=== PATIENT | male | born 1945 | race Caucasian/White ===

== ENCOUNTER 2019-06-02 01:22 | Inpatient (IN) | payer MEDICARE, OTHER ==
[~2019-06-02] VITALS: Ht 180.3 cm; Wt 99.8 kg
[2019-06-02] VITALS (13 sets, daily range): BP systolic 119–214; BP diastolic 54–130
[~2019-06-02 01:22] MED LIST: ADULT LOW DOSE81 MG PO; ASPIRIN81 M2 PO; BACTRIM 400-801 EACH PO; BACTROBAN CREAM30 G1; CALCIUM 500 +1 EAC4; CLARITIN10 MG PO; CLONAZEPAM 1 MG1 M1 PO; CLONIDINE HCL0.3 M2 PO; COREG CR20 MG PO; COREG25 MG PO; EFFEXOR XR75 MG PO; EFFEXOR75 MG PO; FISH OIL 500 M1 EAC2 PO; FLOMAX0.4 MG PO; FOLIC ACID1 MG PO; HUMALOG100 UNIT/1; HUMULIN N100 UNIT/1 SQ; HUMULIN N100 UNIT/3 SUBQ; HYDRALAZINE 5050 M1 PO; HYDROCODONE-APA1 TA1 PO; HYDROXYZINE HCL25 M2 PO; IRON325 PO; KLOR-CON 1010 MEQ; KLOR-CON 1010 MEQ PO; LANTUS100 UNIT/M SUBQ; LASIX 40 MG TAB40 M2 PO; LASIX 40 MG TAB40 MG PO; LEVAQUIN 500 M500 M2 PO; LISINOPRIL-HCT1 EAC1; LISINOPRIL20 MG; MULTIVITAMINS1 EAC7 PO; MYFORTIC180 MG PO; NEURONTIN 300300 M1 PO; NORCO 7.5-3251 EACH PO; NORVASC 5 MG TAB5 MG PO; NOVOLOG100 UNIT/1 SUBQ; OCUVITE TABLET1 EAC1 PO; OMEPRAZOLE 20 M20 M1 PO; OPTIVE EYE DROP30 ML; PEPCID20 MG PO; POTASSIUM20 PO; PREDNISONE 5 MG5 M1 PO; PRINIVIL20 MG PO; PROGRAF1 MG; PROGRAF1 MG PO; PROPRANOLOL 1010 MG PO; PROTONIX40 M1 PO; RENVELA800 MG PO; SENNA PO; SIMVASTATIN40 MG PO; SLOW-MAG64 M1 PO; SLOW-MAG64 MG PO; TUMS X-STR300 MG PO; TYLENOL325 MG PO; VALCYTE450 MG PO; VISION VITAMIN1 EAC1; VITAMIN D1000 UNI1 PO; VITAMIN D400 UNIT PO; VITAMIN E1000 UNI3; VITAMIN E400 UNIT PO; XANAX 0.25 MG0.25 MG PO; ZOCOR20 MG PO; ZOFRAN ODT4 MG PO; [UNRECOGNIZED DRUG - CODE] SUBQ; [UNRECOGNIZED DRUG - OTHER] PO
[2019-06-02 01:56] LABS: ABSOLUTE EOSINOPHILS 0.1 thou/uL (0.0-0.7); ABSOLUTE LYMPHOCYTES 0.8 thou/uL (0.8-5.3); ABSOLUTE MONOCYTES 0.6 thou/uL (0.0-1.2); ABSOLUTE NEUTROPHILS 6.2 thou/uL (1.6-8.1); BASOPHILS 0.3 %; EOSINOPHILS 1.6 %; HEMATOCRIT 39.1 % (42.0-52.0); HEMOGLOBIN 13.2 gm/dL (14.0-18.0); LYMPHOCYTES 10.9 %; MCH 29.1 pg (26.0-34.0); MCHC 33.7 g/dL (28.0-37.0); MCV 86.3 fL (80.0-100.0); MONOCYTES 7.7 %; MPV 7.7 fl. (7.2-11.1); NUCLEATED RBCS 0 /100WBC; PLATELET COUNT* 184 thou/uL (150-400); POLYS 79.5 %; RBC 4.53 mil/uL (4.50-6.00); RDW-CV 16.5 % (10.5-14.5); WBC 7.7 thou/uL (4.0-11.0)
[2019-06-02 02:05] LABS: CALCIUM 7.7 mg/dL (8.5-10.1); CREATININE 1.2 mg/dL (0.6-1.3)
[2019-06-02 02:06] LABS: INR 1.1; POTASSIUM 2.7 mmol/L (3.5-5.1)
[2019-06-02 02:17] LABS: ALBUMIN 3.3 g/dL (3.4-5.0); TOTAL BILIRUBIN 0.3 mg/dL (<0.1-1.0)
[2019-06-02 03:52] LABS: URINE BILIRUBIN NEGATIVE (Negative); URINE BLOOD NEGATIVE (Negative); URINE CLARITY CLEAR; URINE COLOR YELLOW; URINE GLUCOSE-RANDOM NEGATIVE (Negative); URINE KETONES NEGATIVE (Negative); URINE LEUKOCYTES-REFLEX NEGATIVE (Negative); URINE NITRITE-REFLEX NEGATIVE (Negative); URINE PROTEIN NEGATIVE (Negative); URINE UROBILINOGEN 0.2 E.U./dl (0.2-1.0)
[2019-06-02] MEDS ORDERED: DRIZALMA SPRINK20 MG PO (05:40)
[2019-06-02] MEDS ORDERED: BUMEX2 MG PO (05:40)
[2019-06-02] MEDS ORDERED: DULCOLAX STOOL100 M1 PO (05:41)
[2019-06-02] MEDS ORDERED: LIPITOR40 MG PO (05:41)
[2019-06-02] MEDS ORDERED: LIDODERM1 EACH TOP (05:42)
[2019-06-02] MEDS ORDERED: HYDRALAZINE 2525 M1 PO (05:42)
[2019-06-02] MEDS ORDERED: VYZULTA5 ML OPHTHALMIC (05:42)
[2019-06-02] MEDS ORDERED: LOSARTAN POTASS50 MG PO (05:42)
[2019-06-02] MEDS ORDERED: PROGRAF1 MG PO (11:16)
--- NOTE | 2019-06-02 13:01 | EKG ---
[place] [address] ELECTROCARDIOGRAM REPORT Name: DAKOTA REYNOLDS Room: [address] ADM IN M.R.#: [id number] Admission: 06/02/19 Attend Phys: Greg Washington Discharge: Date of : 49 Report #: [id number] THIS REPORT FOR: //name// [facility] ED Test Date: 2019-06-02 Test Time: 01:44:33 Pat Name: DAKOTA REYNOLDS Department: Room: [facility] Gender: M Risk Assessment Consultant: CT : 1945 Requested By: Joy May Order Number: [id number] MD: Darrion Navarro Measurements Intervals [place] Rate: 64 P: 7 OR: 346 QRS: -16 QRSD: 98 T: 29 QT: 430 QTc: 444 Interpretive Statements Sinus rhythm Prolonged OR interval Inferior infarct, old Compared to ECG 10/07/2016 18:38:21 Myocardial infarct finding now present Ventricular premature complex(es) no longer present Electronically Signed On 06-02-2019 13:00:41 EVENT STAFF MEMBER by Darrion Navarro [email or web address] <ELECTRONICALLY SIGNED> By: Darrion Navarro MD, FACC 06/02/19 1300 0144 0144 Darrion Navarro MD, [facility] /EPI
[2019-06-02 14:05] LABS: CALCIUM 8.2 mg/dL (8.5-10.1)
[2019-06-02 14:06] LABS: POTASSIUM 2.6 mmol/L (3.5-5.1)
[2019-06-02 23:19] LABS: CALCIUM 8.2 mg/dL (8.5-10.1); CREATININE 1.1 mg/dL (0.6-1.3)
[2019-06-02 23:27] LABS: POTASSIUM 3.9 mmol/L (3.5-5.1)
[2019-06-03 04:31] LABS: CALCIUM 7.9 mg/dL (8.5-10.1); CREATININE 1.1 mg/dL (0.6-1.3); POTASSIUM 4.2 mmol/L (3.5-5.1)
[2019-06-03 07:01] VITALS: BP 151/56
[2019-06-03 08:01] VITALS: BP 139/45
[2019-06-03 13:05] VITALS: BP 159/59
[2019-06-03 15:24] VITALS: BP 142/51
[2019-06-03 20:00] VITALS: BP 153/56
[2019-06-04 04:49] LABS: CREATININE 1.1 mg/dL (0.6-1.3); MAGNESIUM 1.8 mg/dL (1.8-2.4); POTASSIUM 4.1 mmol/L (3.5-5.1)
[2019-06-04 05:47] VITALS: BP 172/72
[2019-06-04] MEDS ORDERED: FLOMAX0.4 MG PO (07:45)
[2019-06-04 09:30] VITALS: BP 110/62
[2019-06-04 11:08] VITALS: BP 110/62
--- NOTE | 2019-06-04 18:41 | CON ---
[address] [address] CONSULTATION Name: DAKOTA REYNOLDS Room: [address] IN M.R.#: [id number] Admission: 06/02/19 Attend Phys: Greg Washington Discharge: 06/04/19 Date of : 49 Report #: [id number] THIS REPORT FOR: //name// CC: JULIO physician/PCP Analy Gr DATE OF SERVICE: 06/03/2019 NEPHROLOGY CONSULTATION CONSULTING PHYSICIAN: Analy Gr MD REASON FOR NEPHROLOGY CONSULTATION: History of renal transplant for followup. REASON FOR ADMISSION: The patient became unresponsive and he was hypoglycemic. HISTORY OF PRESENT ILLNESS: This is a 74-year-old male with past medical history of donor kidney transplant in 2014, reports no rejection episodes, follows with Dr. Nguyen at , creatinine at baseline 1-1.1, was brought in yesterday because he had an episode of unresponsiveness. His blood sugar was found to be 74 at that time. Apparently, he had taken his insulin, but has not eaten much. He was given some D10 bolus, blood glucose did improve and his mental status did improve also once he came to the hospital. He takes Prograf, Myfortic and prednisone. The dosages were verified. He was also found to have urinary retention. Initially, CT abdomen showed evidence of mild hydroureter and transplanted kidney and distended urinary bladder. Showed greater than 400 mL. Urology was consulted. They recommended placement of Madison catheter, which was done and they started him on Flomax and they recommended voiding trial just before discharge and they recommended him to follow up with Urology as outpatient. The patient does not have any complaints right now. He is hungry. He also takes bumetanide at home. His creatinine was 1.2 when he came in, came down to 1.1. He was given IV fluids overnight. ALLERGIES: IRON AND WASP STINGS. REVIEW OF SYSTEMS: Unless mentioned in history of present illness, otherwise 10-point review of systems done and negative. PAST MEDICAL AND SURGICAL HISTORY: Includes a history of diabetes type 2, history of hypertension, history of donor kidney transplant 2014 and obstructive sleep apnea. Surgical history, gallbladder removal and the patient has a left radiocephalic fistula. The patient was on dialysis for six and a half years before he got his transplant. FAMILY HISTORY: [place] [address] CONSULTATION Name: DAKOTA REYNOLDS Room: [address]#: [id number] Admission: 06/02/19 Attend Phys: Greg Washington Discharge: 06/04/19 Date of : 49 Report #: [id number] SOCIAL HISTORY: Lives at home with his . Does not smoke, drink alcohol or use illicit drugs. MEDICATIONS: Include acetaminophen, hydroxyzine, duloxetine, bumetanide 2 mg daily, docusate, atorvastatin, hydralazine, latanoprost, lidocaine, Lozol 50 mg a day, prednisone 5 mg a day, carvedilol 25 mg b.i.d., propranolol 40 mg b.i.d., pantoprazole, loratadine, ____, tacrolimus 4 mg at night and 2 mg in the morning, Myfortic 3 tablets 180 mg each b.i.d., cholecalciferol, aspirin, Lantus, potassium, simvastatin, vitamin C and E and potassium chloride 40 mEq daily, and amlodipine. PHYSICAL EXAMINATION: VITAL SIGNS: Blood pressure is 142/74, pulse rate is 78, his temperature is 36.8, respiratory rate is 16, and pulse ox is on room air 100%. GENERAL: He is awake, alert, oriented x 3. HEAD AND EYES: Atraumatic, normocephalic. EARS, NOSE, AND THROAT: Normal ears and nose. Mucous membranes are moist. NECK: No JVD. CHEST: Bilaterally clear to auscultation. No crackles or wheezing. CARDIOVASCULAR: S1, S2 normal. No murmurs. ABDOMEN: Soft, nondistended. Transplant site right lower quadrant is intact. No tenderness. EXTREMITIES: Lower extremities, there is no lower extremity edema. NEUROLOGICAL FUNCTION: Gross neurological function is intact. PSYCHIATRIC: Mood and affect seem to be normal. LABORATORY DATA: Hemoglobin is 13.2, WBC 7.7, platelet count is 184,000. Creatinine 1.1, sodium is 142, potassium is 4.2. It was 2.7 when he came in and magnesium was 1.3 when he came, now 1.8 and other labs are reviewed. IMAGING: Arterial study foot x-ray, head CT, abdominopelvic CT and chest x-ray were reviewed. ASSESSMENT: 1. History of donor kidney transplant in 2014, creatinine seems to be at baseline. He is on chronic immunosuppressive medications. 2. Hypomagnesemia, which is likely because of tacrolimus use. 3. Hypokalemia, which is also with diuretic use and tacrolimus causing hypomagnesemia, which is in turn cause hypokalemia. 4. Decreased responsiveness, which is because of hypoglycemia. It is right now resolved. 5. Diabetes type 2, primary team is managing. 6. Urinary bladder distention with mild hydroureter with transplant kidney and Flomax started and he has a Madison and Urology evaluated him. 7. Obstructive sleep apnea. 8. Hypertension. Blood pressure is controlled. [facility] [address] [place] [address] CONSULTATION Name: DAKOTA REYNOLDS Room: [address]#: [id number] Admission: 06/02/19 Attend Phys: Greg Washington Discharge: 06/04/19 Date of : 49 Report #: [id number] PLAN: 1. He is eating, drinking well. Please stop his IV fluids. 2. We will check a Prograf level. 3. Continue his chronic immunosuppression. 4. He will need magnesium supplementation on a chronic basis. I am going to go ahead and order and that will follow his electrolytes. 5. His foot x-ray showed left foot having bone destruction of second and third toes. We will defer that to primary. 6. Continue Flomax and follow with Urology for urinary retention. Thank you for this consultation. We will continue to follow with you. <ELECTRONICALLY SIGNED> By: Kyara Del Rio MD 06/04/19 1841 0818 [id number] Del Rio MD /nt
== END 2019-06-04 13:37 | disposition home or self-care (01) | DRG 638 ==
LOC: M.ERS 01:22 → M.TBA-ER 03:44 → M.ICU 03:44 → M.ORTHSURG 06-03 16:26
PROVIDERS: Emergency Medicine; Internal Medicine; ADMIT Internal Medicine
DX: E11.649 Type 2 diabetes mellitus with hypoglycemia without coma (principal); Z94.0 Kidney transplant status; N13.30 Unspecified hydronephrosis; J90 Pleural effusion, not elsewhere classified; I12.0 Hypertensive chronic kidney disease with stage 5 chronic kidney disease or end stage renal disease; G92 Toxic encephalopathy; G47.33 Obstructive sleep apnea (adult) (pediatric); E83.42 Hypomagnesemia; E87.6 Hypokalemia; E11.40 Type 2 diabetes mellitus with diabetic neuropathy, unspecified; N18.6 End stage renal disease; K59.00 Constipation, unspecified; E11.22 Type 2 diabetes mellitus with diabetic chronic kidney disease; G31.84 Mild cognitive impairment of uncertain or unknown etiology; R33.9 Retention of urine, unspecified; N32.89 Other specified disorders of bladder; N40.1 Benign prostatic hyperplasia with lower urinary tract symptoms; E11.51 Type 2 diabetes mellitus with diabetic peripheral angiopathy without gangrene; Z79.84 Long term (current) use of oral hypoglycemic drugs; Z90.49 Acquired absence of other specified parts of digestive tract; Z79.82 Long term (current) use of aspirin; Z79.899 Other long term (current) drug therapy; Z91.038 Other insect allergy status; Z91.048 Other nonmedicinal substance allergy status; Y92.89 Other specified places as the place of occurrence of the external cause; T50.905A Adverse effect of unspecified drugs, medicaments and biological substances, initial encounter; Z82.49 Family history of ischemic heart disease and other diseases of the circulatory system

== ENCOUNTER 2019-06-13 13:37 | Inpatient (IN) | payer MEDICARE, OTHER ==
[~2019-06-13] VITALS: Ht 172.7 cm; Wt 95.3 kg
--- NOTE | ~2019-06-13 | EKG ---
[place] [address] ELECTROCARDIOGRAM REPORT Name: DAKOTA REYNOLDS Room: [address] ADM IN M.R.#: [id number] Admission: 06/13/19 Attend Phys: Tony seals Sa Discharge: Date of : 49 Date of Service: 06/15/192038 Report #: [id number] THIS REPORT FOR: cc: Physician not on staff Physician not on staff Jess Mercado MD ~ THIS REPORT FOR: //name// [facility] Test Date: 2019-06-15 Test Time: 20:39:06 Pat Name: DAKOTA REYNOLDS Department: Room: [address] Gender: M Numerical Tool Programmer: TNIG : 1945 Requested By: Tony Bautista Order Number: [id number] Reading MD: Measurements Intervals [place] Rate: 73 P: 55 GA: 233 QRS: 14 QRSD: 91 T: 8 QT: 383 QTc: 422 Interpretive Statements Sinus rhythm Prolonged GA interval Low voltage, precordial leads Compared to ECG 06/13/2019 14:05:52 First degree AV block now present Low QRS voltage now present Myocardial infarct finding no longer present [email or web address] By: 38 38 Epiphany Epiphany, /ELIUD
[~2019-06-13 13:37] MED LIST changes: +BUMEX2 MG PO; +DRIZALMA SPRINK20 MG PO; +DULCOLAX STOOL100 M1 PO; +HYDRALAZINE 2525 M1 PO; +LIDODERM1 EACH TOP; +LIPITOR40 MG PO; +LOSARTAN POTASS50 MG PO; +VYZULTA5 ML OPHTHALMIC
[2019-06-13 13:44] VITALS: BP 160/60
--- NOTE | 2019-06-13 14:01 | NUR ---
SEVERAL TEMPERATURES HAVE BEEN TAKEN OF THE PATIENT SINCE TRIAGE. ALL RANGING FROM 107.1 DOWN TO 101.3, BOTH TEMPORAL AND ORAL.
[2019-06-13 14:07] LABS: HEMATOCRIT 37.5 % (42.0-52.0); HEMOGLOBIN 12.8 gm/dL (14.0-18.0); MCH 29.3 pg (26.0-34.0); MCHC 34.1 g/dL (28.0-37.0); MCV 86.1 fL (80.0-100.0); MPV 7.5 fl. (7.2-11.1); NUCLEATED RBCS 0 /100WBC; PLATELET COUNT* 210 thou/uL (150-400); RBC 4.36 mil/uL (4.50-6.00); WBC 9.2 thou/uL (4.0-11.0)
[2019-06-13 14:17] LABS: INR 1.1; PROTIME 11.4 Seconds (9.20-11.50)
[2019-06-13 14:18] LABS: CALCIUM 8.1 mg/dL (8.5-10.1); CREATININE 1.4 mg/dL (0.6-1.3); POTASSIUM 4.1 mmol/L (3.5-5.1)
[2019-06-13 14:27] LABS: ALBUMIN 3.5 g/dL (3.4-5.0); TOTAL BILIRUBIN 0.9 mg/dL (<0.1-1.0); TOTAL PROTEIN 6.7 g/dL (6.4-8.2)
[2019-06-13 14:28] LABS: ABSOLUTE LYMPHOCYTES 0.2 thou/uL (0.8-5.3); ABSOLUTE MONOCYTES 0.3 thou/uL (0.0-1.2); ABSOLUTE NEUTROPHILS 8.7 thou/uL (1.6-8.1); PLATELET ESTIMATE ADEQUATE
[2019-06-13 14:52] LABS: URINE BILIRUBIN NEGATIVE (Negative); URINE BLOOD 3+ (Negative); URINE CLARITY CLEAR; URINE COLOR YELLOW; URINE GLUCOSE-RANDOM NEGATIVE (Negative); URINE KETONES NEGATIVE (Negative); URINE LEUKOCYTES-REFLEX 1+ (Negative); URINE NITRITE-REFLEX NEGATIVE (Negative); URINE PROTEIN 1+ (Negative); URINE SPECIFIC GRAVITY <= 1.005 (1.005-1.030); URINE UROBILINOGEN 0.2 E.U./dl (0.2-1.0)
[2019-06-13 15:08] LABS: HYALINE CASTS 0-3 Few /LPF (None Seen); MUCUS None Seen strn/LPF (None Seen); SQUAMOUS NONE SEEN /LPF (0-3)
[2019-06-13 15:09] LABS: CRYSTALS None Seen /LPF (None Seen); URINE WBC-REFLEX 6-15 Few /HPF (0-5)
[2019-06-13 15:21] LABS: INFLUENZA A ANTIGEN Negative (Negative); INFLUENZA B ANTIGEN Negative (Negative)
--- NOTE | 2019-06-13 16:40 | EKG ---
[place] [address] ELECTROCARDIOGRAM REPORT Name: DAKOTA REYNOLDS Room: [facility] ADM IN M.R.#: [id number] Admission: 06/13/19 Attend Phys: Tony Booker Discharge: Date of : 49 Report #: [id number] THIS REPORT FOR: //name// [facility] ED Test Date: 2019-06-13 Test Time: 14:05:52 Pat Name: DAKOTA REYNOLDS Department: Room: [facility] Gender: M Agency Service Coordinator: [facility] : 1945 Requested By: Ventura Butler Order Number: [id number] MD: Harshil De Luna Measurements Intervals [place] Rate: 97 P: [place]: QRS: -16 QRSD: 87 T: 50 QT: 337 QTc: 428 Interpretive Statements Sinus rhythm with premature atrial and ventricular contractions Inferior infarct, old Compared to ECG 06/02/2019 01:44:33 Ventricular premature complex(es) now present First degree AV block no longer present Myocardial infarct finding still present Electronically Signed On 06-13-2019 16:39:32 CLOTHING DESIGNER by Harshil De Luna [email or web address] <ELECTRONICALLY SIGNED> By: Harshil De Luna MD, FACC 06/13/19 1639 1405 1405 Harshil De Luna MD, [facility] /EPI
[2019-06-13 20:15] VITALS: BP 130/48
[2019-06-13 21:00] VITALS: BP 155/67
[2019-06-14] VITALS: BP 135/51
[2019-06-14 04:00] VITALS: BP 96/37
[2019-06-14 06:57] LABS: HEMATOCRIT 30.9 % (42.0-52.0); MCH 29.6 pg (26.0-34.0); MCHC 33.8 g/dL (28.0-37.0); MCV 87.3 fL (80.0-100.0); MPV 8.4 fl. (7.2-11.1); RBC 3.54 mil/uL (4.50-6.00); RDW-CV 16.2 % (10.5-14.5)
[2019-06-14 07:04] LABS: HEMOGLOBIN 10.5 gm/dL (14.0-18.0)
[2019-06-14 07:18] LABS: ALBUMIN 2.4 g/dL (3.4-5.0); CALCIUM 6.9 mg/dL (8.5-10.1); CREATININE 2.2 mg/dL (0.6-1.3); PHOSPHORUS* 1.5 mg/dL (2.5-4.9); POTASSIUM 3.2 mmol/L (3.5-5.1)
[2019-06-14 07:29] LABS: MAGNESIUM 0.9 mg/dL (1.8-2.4)
[2019-06-14 08:00] VITALS: BP 93/41
[2019-06-14 15:50] VITALS: BP 90/50
[2019-06-14 16:09] VITALS: BP 98/31
--- NOTE | 2019-06-14 16:26 | NUR ---
CM ASSESSMENT: PT LIVES AT HOME WITH HIS . SHE DOES THE DRIVING,COOKING CLEANING AND HELPS PT WITH HIS MEDS. PT HAS A CANE. HE DENIES NEEDS FOR HH. WILL CONTINUE TO FOLLOW
--- NOTE | 2019-06-14 19:03 | NUR ---
ASSUMED PT CARE AT 0700, PT A&O X4, RA, HYPOTENSIVE, MED SURG STATUS, FULL ASSESSMENT CHARTED. PT UP TO BEDSIDE COMMODE WITH ASSIST X1-2 AND GAIT BELT. AT BEDSIDE, Q2 HOUR TURNS AND HOURLY ROUNDING COMPLETED.
[2019-06-14 20:00] VITALS: BP 133/52
[2019-06-15] VITALS: BP 103/43
[2019-06-15] MEDS ORDERED: EXCEDRIN MIGRA1 EAC1 PO (03:36)
[2019-06-15] MEDS ORDERED: CENTRUM SILVER1 EAC7 PO (03:42)
[2019-06-15] MEDS ORDERED: PROSCAR 5MG TABL5 M1 PO (03:45)
[2019-06-15] MEDS ORDERED: NEURONTIN 300M300 M2 PO (03:47)
[2019-06-15] MEDS ORDERED: HUMULIN N100 UNIT/1 SUBQ ×2 (03:58→03:59)
[2019-06-15] MEDS ORDERED: MYSOLINE50 MG PO (04:04)
[2019-06-15] MEDS ORDERED: SENOKOT-S1 TA2 PO (04:07)
[2019-06-15] MEDS ORDERED: MIRALAX119 GM PO (04:08)
[2019-06-15] MEDS ORDERED: NITROSTAT0.4 M1 SUBLING (04:11)
[2019-06-15] MEDS ORDERED: SILDENAFIL20 MG PO (04:13)
[2019-06-15 05:41] LABS: HEMATOCRIT 29.8 % (42.0-52.0); MCH 29.3 pg (26.0-34.0); MCHC 33.6 g/dL (28.0-37.0); MCV 87.1 fL (80.0-100.0); MPV 8.6 fl. (7.2-11.1); RBC 3.42 mil/uL (4.50-6.00); RDW-CV 16.4 % (10.5-14.5); WBC 12.7 thou/uL (4.0-11.0)
[2019-06-15 05:55] LABS: ALBUMIN 2.5 g/dL (3.4-5.0); CALCIUM 7.7 mg/dL (8.5-10.1); CREATININE 2.2 mg/dL (0.6-1.3); MAGNESIUM 2.9 mg/dL (1.8-2.4); PHOSPHORUS* 2.3 mg/dL (2.5-4.9)
[2019-06-15 05:56] LABS: POTASSIUM 4.2 mmol/L (3.5-5.1)
[2019-06-15 08:00] VITALS: BP 141/64
--- NOTE | 2019-06-15 11:33 | CON ---
[address] [address] CONSULTATION Name: DAKOTA REYNOLDS Room: [address] IN M.R.#: [id number] Admission: 06/13/19 Attend Phys: Tony Booker Discharge: Date of : 49 Report #: [id number] THIS REPORT FOR: //name// CC: Tony Bautista Physician staff ZINA ROQUE DATE OF SERVICE: 06/14/2019 ATTENDING PHYSICIAN: Dr. Maged SOMERS. REASON FOR EVALUATION: Gram-negative septicemia in a patient likely genitourinary tract source. Patient is on immunosuppressive therapy for renal transplant. HISTORY OF PRESENT ILLNESS: Chart reviewed, patient examined. This is a 74-year-old gentleman with known history of renal transplantation in 2019 on combination immunosuppressive therapy. He is actually hospitalized for second time this month. At that time, he was felt to be hypoglycemic, this was corrected, and he was experiencing retention. He was discharged with a Madison catheter. Upon removal, he was found to have blood. Subsequent to that developed fevers as high as 103, shaking chills, dysuria, pressure as well as gross hematuria, evaluated including blood cultures now one of which is positive for gram-negative mitchell. He is lethargic at this point, appears to be in moderate distress. He is afebrile with systolic pressures in the 90s to the 100. ALLERGIES: LISTED TO IRON. CURRENT MEDICATIONS: Tamsulosin, insulin, tacrolimus, pantoprazole, propranolol, atorvastatin, docusate, duloxetine, multivitamin, mycophenolate, cholecalciferol, amlodipine, ceftriaxone. 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 SOCIAL HISTORY: Nonsmoker, no ethanol, no illicit drug use. FAMILY HISTORY: Noncontributory. REVIEW OF SYSTEMS: Somewhat limited due to his somnolence. Denies any significant abdominal related complaints at the moment. He is not nauseated. PHYSICAL EXAMINATION: GENERAL: [id number] distress. He does have some supplemental oxygen in place per nasal cannula, appears [place] [address] CONSULTATION Name: GAILDAKOTA Juan Room: [address]#: [id number] Admission: 06/13/19 Attend Phys: Tony Booker Discharge: Date of : 49 Report #: [id number] VITAL SIGNS: Temperature max 102.4, more recently 97.9; pulse 68, respirations 20, blood pressure 98/31. SKIN: Warm, dry, no rashes. HEENT: Normocephalic. NECK: Supple. LUNGS: Generally clear. I do not appreciate any murmur. HEART: Regular. I do not appreciate any murmur. ABDOMEN: Distended, obese, soft, some tenderness in lower quadrant. GENITOURINARY: Deferred. RECTAL: Deferred. LABORATORY DATA: Blood culture growth of 1-2 with gram-negative rods. Electrolytes: Sodium 143, potassium 3.2, chloride 108, bicarbonate is 21, anion gap of 14, BUN and creatinine 38 and 2.2, glucose of 149. CBC: White count 15.0, H and H 10.5 and 30.9, platelets of 150. Lactic acid is 1.3. Influenza antigen was negative. Urinalysis; 6-15 white cells, 10-30 bacteria. Liver functions are otherwise unremarkable. Albumin of 3.5, total protein 6.7. Estimated GFR of 50. ASSESSMENT AND PLAN: Gram-negative septicemia, likely on the basis of genitourinary tract source. We have gram negatives in his blood. We will adjust therapy to include cefepime. At this point, he is moderately altered organ dysfunction. Discussed with his spouse. We will monitor expectantly. <ELECTRONICALLY SIGNED> By: Maurisio Borjas MD 06/15/19 1133 1704 0408Jobrain Borjas MD /nt
[2019-06-15 12:00] VITALS: BP 145/62
[2019-06-15 16:30] VITALS: BP 134/63
[2019-06-15 20:00] VITALS: BP 152/61
--- NOTE | 2019-06-15 20:16 | NUR ---
RECEIVED REPORT. ASSUMED CARE OF PT AROUND 0730. PT A&O X4. AM ASSESSMENT AND VITALS COMPLETED CHARTED. IV INTACT AND INFUSING IVF. MEDS PER EMAR. PT DENIED PAIN OR DISCOMFORT THIS SHIFT. ABLE TO WALK WITH P.T. FAMILY VISITED THIS AFTERNOON. GOOD APPETITE. UP TO BATHROOM WITH ASSIST X1 AND WALKER SEVERAL TIMES THIS SHIFT. BM X1, SMALL. PT CURRENTLY RESTING IN BED. CALL LIGHT IS WITHIN REACH. HOURLY ROUNDING PERFORMED. FALL PRECAUTIONS IN PLACE.
[2019-06-16] VITALS (7 sets, daily range): BP systolic 128–177; BP diastolic 55–91
[2019-06-16 03:58] LABS: BE -6.5 mmol/L (-2 to +3); PCO2 38.6 mmHg (35.0-45.0); pH 7.314 (7.340-7.450)
[2019-06-16 04:02] LABS: PO2 383.2 mmHg (75.0-100.0)
[2019-06-16 04:20] LABS: CREATININE 1.8 mg/dL (0.6-1.3); POTASSIUM 4.7 mmol/L (3.5-5.1)
--- NOTE | 2019-06-16 08:31 | NUR ---
ASSUMED PT CARE AT APPROX 193. PT IS AWAKE AND ORIENTED X4. VSS ON ROOM AIR. AT 2057, PT C/O CHEST PAIN THE HE DESCRIBES " IF SOMEONE IS SITTING ON MY CHEST", EKG DONE, PT PLACED ON O2 SUPPORT AT 2L/NC PER PROTOCOL, DR ALLRED INFORMED,ORDERS RECEIVED AND CARRIED OUT, TROPONIN IS NEGATIVE, MORPHINE AND ATIVAN GIVEN PER JUL FOR PAIN AND ANXIETY. PT IS CLOSELY MONITORED. AT APPROX 0230 PT STARTED GETTING SHORT OF AIR, spO2 IS GOING DOWN TO THE UPPER 80's, THIS NURSE HAD TO INCREASE O2 SUPPORT TO 7 TO KEEP SATs >92%. DR ALLRED INFORMED. PT LUNGS STARTED SOUNDING WET HE CONTINUOUSLY GETS SHORT OF AIR, LASIX 40MG IV GIVEN PER JUL. PT SEEMED TO BE NOT IMPROVING, RAPID RESPONSE ACTIVATED AT APPROX 0330. LASIX 80 GIVEN AND NITRO PASTE APPLIED PER DR GROVER's TELEPHONE ORDER, SANCHEZ CATHETER WAS INSERTED ORDERED WITH GOOD OUTPUT NOTED.PT WAS PUT ON THE BIPAP AT 10/5 BUR 14, FIO2 100%. PT IS CLOSELY MONITORED. spO2 IS BETWEEN 92-94% ON THE BIPAP. DR ALLRED UPDATED OF PT'S CONDITION. AT APPROX 0510 PT IS REFUSING TO KEEP THE BIPAP ON, STATING HE FEELS BETTER. O2 SUPPORT SWITCHED TO 8L/HFC PER RT. PT's spO2 IS AT 94%. LUNGS SOUNDED BETTER AFTER DIURESIS. PT IS CLOSELY MONITORED. HIGH FALL PRECAUTIONS IN PLACE.
--- NOTE | 2019-06-16 10:10 | NUR ---
INITAL ASSESSMENT COMPLETED CHARTED. VSS. TRACONG SR WITH PVC'S ON MONITOR. PT IS DROWSY THIS MORNING. PT DENIES PAIN, SOA, N/V/D, ALTHOUGH PT APPEARS DYSPENIC WITH CONVERSATION. REFER TO COMPUTER CHARTING FOR FURTHER DETAIL. HOURLY ROUNDING AND FALL PRECAUTIONS IN PLACE FOR PT SAFETY. CLWR.
--- NOTE | 2019-06-16 10:30 | CON ---
[address] [address] CONSULTATION Name: DAKOTA REYNOLDS Room: [address] IN M.R.#: [id number] Admission: 06/13/19 Attend Phys: oTny Booker Discharge: Date of : 49 Report #: [id number] THIS REPORT FOR: //name// CC: Tony Bautista Physician staff ZINA ROQUE DATE OF SERVICE: 06/14/2019 REQUESTING PHYSICIAN: Dr. Bautista. REASON FOR CONSULTATION: Acute kidney injury. HISTORY OF PRESENT ILLNESS: The patient is a very pleasant 74-year-old gentleman who has a history of kidney transplant in 2015 at [facility] and followed by manufacturing engineer chief at . He presents with complaints of not feeling well, having fever, chills, and dysuria. He also had some gross hematuria. The patient apparently was hospitalized at [facility] from 06/02/2019 through 06/04/2019 for encephalopathy and hypoglycemia. He also had some urinary retention, so Madison catheter was placed. He was seen his urologist yesterday and the urologist removed his fluids. However, the next day he developed the above-mentioned symptoms. He was admitted to the hospital with diagnosis of acute kidney injury and urinary tract infection. PAST MEDICAL HISTORY: 1. History of renal transplant in 2015. 2. History of diabetes mellitus type 2. 3. History of hypertension. 4. History of obesity. 5. History of urinary retention. FAMILY HISTORY: Noncontributory. SOCIAL HISTORY: No tobacco, no alcohol abuse. MEDICATIONS: Reviewed. From my standpoint, he is on tacrolimus 2 mg in the morning and 1 mg in the evening, prednisone 5 mg daily and mycophenolate, he is receiving 540 mg twice a day. REVIEW OF SYSTEMS: Positive for symptoms as I mentioned earlier, otherwise all systems reviewed and negative. PHYSICAL EXAMINATION: GENERAL: Awake, alert, and oriented. VITAL SIGNS: Blood pressure 93/41, heart rate 75, respiratory rate is 20, temperature now is 39.1 [place] [address] CONSULTATION Name: DAKOTA REYNOLDS Room: [address]#: [id number] Admission: 06/13/19 Attend Phys: Tony Booker Discharge: Date of : 49 Report #: [id number] HEENT: Pupils are round. NECK: Fatty. LUNGS: Clear. SKIN: Clammy. CARDIOVASCULAR: Regular rate. ABDOMEN: Obese. LOWER EXTREMITIES: No edema. LABORATORY DATA: Report revealed serum sodium of 143, potassium 3.2, chloride 108, carbon dioxide 21, BUN 38, creatinine 2.2, magnesium 0.9, hemoglobin is 10.5, white count 15.0 thousand. Urinalysis revealed presence of leukocyte esterase, many bacteria and white blood cells. ASSESSMENT: 1. Acute kidney injury due to urosepsis. Urine culture and blood cultures are pending. 2. Chronic kidney disease, baseline creatinine around 1.3 - 1.5, status post renal transplant in 2015, followed by transplant manufacturing engineer chief. 3. Diabetes mellitus type 2. 4. Hypertension. The patient is hypotensive now due to his infection. 5. Obesity. PLAN: 1. Hold his blood pressure medications. 2. Resume his immunosuppressant. 3. Continue with antibiotics and continue with the fluids. Discussed the case with Dr. Dr. Bautista and with the patient's nurse. <ELECTRONICALLY SIGNED> By: Ta Greene MD 06/16/19 1030 1106 [id number] Greene MD /nt
[2019-06-16] MEDS ORDERED: LATANOPROST 0.2.5 ML OPHTHALMIC (20:50)
[2019-06-17] VITALS: BP 127/70
[2019-06-17 04:00] VITALS: BP 141/54
[2019-06-17 05:08] LABS: CALCIUM 8.3 mg/dL (8.5-10.1); CREATININE 1.4 mg/dL (0.6-1.3); POTASSIUM 3.9 mmol/L (3.5-5.1)
[2019-06-17 08:00] VITALS: BP 155/61
--- NOTE | 2019-06-17 08:10 | NUR ---
ASSUMED PT CARE AT APPROX 1930. PT IS AWAKE AND ORIENTED X4. CHANGE PERSON IN PLACE TRACING SR w/ 1ST DEG AVB, and PVCs. PT STILL APPEARS SHORT OF AIR, LUNG SOUNDS ARE COARSE- LASIX IV GIVEN PER JUL PER DR AGUIAR. LUNGS SOUNDED A LITTLE BETTER AFTER DIUREIS, YET STILL COARSE. PT STATED HE FEELS BETTER, BUT STILLS APPEARS TO BE SOA WHEN HE TALKS. NO DESATURATIONS THIS SHIFT ON 10L OF O2/HFC. PT REFUSED TO WEAR THE BIPAP SAYING IT MAKES HIM FEEL CLAUSTROPHOBIC. EDUCATION GIVEN. PT IS CLOSELY MONITORED. HIGH FALL PRECAUTIONS IN PLACE. CALL LIGHT WITHIN REACH.
[2019-06-17 12:00] VITALS: BP 128/56
[2019-06-17 16:00] VITALS: BP 135/57
--- NOTE | 2019-06-17 19:49 | NUR ---
I ASSUMED CARE OF THE PATIENT AT 0700. HE IS ALERT AND ORIENTED X4 AND IS ON BEDREST. GOAL TODAY IS TO TITRATE OXYGEN. BED IS IN THE LOW LOCKED POSITON AND CALL LIGHT IS IN REACH. HOURLY ROUNDING IS COMPLETED AND PATIENT NEEDS ARE MET. PAIN IS MANAGED WITH PRN MEDS. HAS REQUESTED THAT HE ONLY HAVE MORPHINE AT NIGHT TIME SO HE WON'T BE SO 'HEAVILY SEDATED' DURING THE DAY (HE IS DROWSY BUT EASILY AROUSABLE). HIS APPETITE WAS DECENT AND HE WAS TURNED EVERY 2 HOURS. 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 NEW IV WAS PLACED AND SOME ANTIBOTICS WERE SWITCHED TO PO. WILL CONTINUE TO MONITOR.
[2019-06-17 20:00] VITALS: BP 148/63
[2019-06-18] VITALS: BP 148/62
[2019-06-18 04:00] VITALS: BP 156/61
--- NOTE | 2019-06-18 05:27 | NUR ---
ASSUMED PT CARE AT APPROX 1930. PT IS AWAKE AND ORIENTED X4. VSS ON 5L OF O2/NC. FIREARMS MODEL MAKER IN PLACE TRACING SR 1d AVB w/ PVCs.PT IS NOT IN DISTRESS, NO DESATURATIONS NOTED. CALL LIGHT WITHIN REACH. HIGH FALL PRECAUTIONS IN PLACE. HOURLY ROUNDING DONE FOR SAFETY.
[2019-06-18 05:35] LABS: ABSOLUTE EOSINOPHILS 0.1 thou/uL (0.0-0.7); ABSOLUTE LYMPHOCYTES 0.6 thou/uL (0.8-5.3); ABSOLUTE MONOCYTES 0.8 thou/uL (0.0-1.2); ABSOLUTE NEUTROPHILS 6.8 thou/uL (1.6-8.1); EOSINOPHILS 0.7 %; HEMATOCRIT 29.5 % (42.0-52.0); HEMOGLOBIN 10.2 gm/dL (14.0-18.0); LYMPHOCYTES 7.5 %; MCH 29.7 pg (26.0-34.0); MCHC 34.5 g/dL (28.0-37.0); MONOCYTES 9.8 %; MPV 8.4 fl. (7.2-11.1); NUCLEATED RBCS 0 /100WBC; PLATELET COUNT* 137 thou/uL (150-400); RBC 3.43 mil/uL (4.50-6.00); WBC 8.3 thou/uL (4.0-11.0)
[2019-06-18 05:44] LABS: CALCIUM 7.9 mg/dL (8.5-10.1); CREATININE 1.3 mg/dL (0.6-1.3); POTASSIUM 3.2 mmol/L (3.5-5.1)
[2019-06-18 08:00] VITALS: BP 151/57
[2019-06-18 12:00] VITALS: BP 143/54
[2019-06-18 16:00] VITALS: BP 117/51
--- NOTE | 2019-06-18 18:58 | NUR ---
PT A&O x4. VSS. O2 SUPPORT OF [place] 4L/MIN. UP WITH STB ASSIST, WITH THE HELP OF WALKER. OUT OF BED MOST PART OF THE DAY. TYELENOL GIVEN ONCE FOR NECK PAIN. PAIN PARTIALLY RELEIVED. TOLERATING DIET, BM TODAY. INSULIN GIVEN PER SLIDING SCALE.
[2019-06-18 20:36] VITALS: BP 136/51
[2019-06-19 00:55] VITALS: BP 143/58
[2019-06-19 04:00] VITALS: BP 120/42
[2019-06-19 06:33] LABS: CALCIUM 7.9 mg/dL (8.5-10.1); CREATININE 1.4 mg/dL (0.6-1.3)
[2019-06-19 06:36] LABS: POTASSIUM 2.7 mmol/L (3.5-5.1)
[2019-06-19 08:00] VITALS: BP 142/59
--- NOTE | 2019-06-19 11:20 | NUR ---
CONTINUE TO FOLLOW, MET WITH PT. STATES SOME IMPROVED, PLANS TO RETURN HOME AT [place]. HE HAS HAD HH THRU [facility] IN THE PAST. STILL FEELING WEAK. WILL FOLLOW
[2019-06-19 15:21] VITALS: BP 152/70
[2019-06-19 16:00] VITALS: BP 149/57
--- NOTE | 2019-06-19 16:45 | 2DMMODE ---
[place] [address] 2 D/M-MODE ECHOCARDIOGRAM Name: DAKOTA REYNOLDS Room: [address] IN .Fred.#: [id number] Admission: 06/13/19 Attend Phys: Tony seals Sa Discharge: Date of : 49 Date of Service: 06/19/19 1644 Report #: [id number] THIS REPORT FOR: cc: Physician not on staff Physician not on staff Cheikh Loera MD [facility] ~ THIS REPORT FOR: //name// APPROVED REPORT Study performed: 06/19/2019 11:01:40 EXAM: Comprehensive 2D, Doppler, and color-flow Echocardiogram Patient Location: In-Patient Room #: [facility] Status: routine BSA: 2.20 HR: 69 bpm BP: 142/59 mmHg Rhythm: NSR Other Information Study Quality: Good Indications Dyspnea 2D Dimensions IVSd: 16.46 (7-11mm) LVOT Diam: 20.75 (18-24mm) LVDd: 43.92 mm PWd: 12.65 (7-11mm) Ascending Ao: 31.44 (22-36mm) LVDs: 26.12 (25-40mm) Aortic Root: 34.11 mm Volumes Left Atrial Volume (Systole) LA ESV Index: 33.50 mL/m2 Aortic Valve AoV Peak Gino.: 1.63 m/s AO Peak Gr.: 10.57 mmHg LVOT Max P.46 mmHg AO Mean Gr.: 6.49 mmHg LVOT Mean P.07 mmHg LVOT Max V: 1.06 m/s AO V2 VTI: 33.40 cm LVOT Mean V: 0.65 m/[place] [address] 2 D/M-MODE ECHOCARDIOGRAM Name: DAKOTA REYNOLDS Room: [address] IN [facility].#: [id number] Admission: 06/13/19 Attend Phys: Tony seals Sa Discharge: Date of : 49 Date of Service: 06/19/19 1644 Report #: [id number] KATIE (VTI): 2.61 cm2 LVOT V1 VTI: 25.76 cm Mitral Valve MV Mean Gr.: 2.94 mmHg E/A Ratio: 0.92 MV Decel. Time: 248.98 ms MV E Max Gino.: 1.08 m/s MV PHT: 72.20 ms MVA (PHT): 3.05 cm2 TDI E/Lateral E': 10.80 E/Medial E': 9.82 Medial E' Gino.: 0.11 m/s Lateral E' Gino.: 0.10 m/s Pulmonary Valve PV Peak Gino.: 1.00 m/s PV Peak Gr.: 4.02 mmHg Tricuspid Valve RAP Estimate: 5.00 mmHg TR Peak Gr.: 41.96 mmHg RVSP: 46.00 mmHg PA Pressure: 46.00 mmHg Left Ventricle The left ventricle is normal size. There is normal LV segmental wall motion. Mild concentric left ventricular hypertrophy. Left ventricular systolic function is normal. The left ventricular ejection fraction is within the normal range. LVEF is 55-60%. Right Ventricle The right ventricle is normal size. The right ventricular systolic function is normal. Atria Left atrium is mildly dilated. The right atrium size is normal. Aortic Valve Mild aortic valve sclerosis. No aortic regurgitation is present. There is no aortic valvular stenosis. Mitral Valve There is mitral annular calcification. Trace mitral regurgitation. No evidence of mitral valve stenosis. Tricuspid Valve The tricuspid valve is normal in structure[place] [address] 2 D/M-MODE ECHOCARDIOGRAM Name: DAKOTA REYNOLDS Room: [address] IN [facility]#: [id number] Admission: 06/13/19 Attend Phys: Tony seals Sa Discharge: Date of : 49 Date of Service: 06/19/19 1644 Report #: [id number] regurgitation. estimated pa pressure 50 mm Hg Pulmonic Valve Pulmonic valve is not well visualized. There is no pulmonic valvular regurgitation. Great Vessels The aortic root is normal in size. IVC is normal in size and collapses >50% with inspiration. Pericardium There is no pericardial effusion. <Conclusion> Mild concentric left ventricular hypertrophy. LVEF is 55-60%. Mild aortic valve sclerosis. Trace tricuspid regurgitation. estimated pa pressure 50 mm Hg <ELECTRONICALLY SIGNED> By: Cheikh Loera MD, FACC 06/19/19 1644 43 43 Cheikh Loera MD, FACC /INF
--- NOTE | 2019-06-19 18:01 | NUR ---
PATIENT RESTING I NCHAIR IN ROOM. UP STANDBY TO BATHROOM IN ROOM. POTASSIUM REPLACEMENT TODAY WITH RESULTANT LEVEL OF 3.7. VSS ANDPATINET IN NO APPARNET SIGNS OF DISTRESS AT THIS TIME. HOURLY ROUNDING COMPLETED FOR PATIENT SAFETY
[2019-06-19 20:00] VITALS: BP 154/58
[2019-06-20] VITALS: BP 134/50
[2019-06-20 04:00] VITALS: BP 158/66
[2019-06-20 08:00] VITALS: BP 154/54
[2019-06-20 08:06] LABS: ABSOLUTE EOSINOPHILS 0.1 thou/uL (0.0-0.7); ABSOLUTE LYMPHOCYTES 0.7 thou/uL (0.8-5.3); ABSOLUTE MONOCYTES 0.7 thou/uL (0.0-1.2); ABSOLUTE NEUTROPHILS 3.6 thou/uL (1.6-8.1); BASOPHILS 0.3 %; EOSINOPHILS 1.7 %; HEMATOCRIT 30.9 % (42.0-52.0); HEMOGLOBIN 10.5 gm/dL (14.0-18.0); LYMPHOCYTES 13.9 %; MCH 29.1 pg (26.0-34.0); MCHC 33.9 g/dL (28.0-37.0); MONOCYTES 12.8 %; NUCLEATED RBCS 0 /100WBC; PLATELET COUNT* 207 thou/uL (150-400); POLYS 71.3 %; RBC 3.59 mil/uL (4.50-6.00); WBC 5.1 thou/uL (4.0-11.0)
[2019-06-20 08:19] LABS: CREATININE 1.3 mg/dL (0.6-1.3); MAGNESIUM 1.7 mg/dL (1.8-2.4); POTASSIUM 4.1 mmol/L (3.5-5.1)
[2019-06-20 11:50] VITALS: BP 154/62
--- NOTE | 2019-06-20 12:22 | NUR ---
Nutrition: Pt admitted with UTI. H/o DM, GERD, SHAHID, HTN. Seen for LOS. Physician indicated severe PCM - defer DX. CHO controlled diet, eats well. Wt: 218#. Alb 2.5, prealb 16, BG 168. Lasix, insulin. Mild nutrition risk. RD will order Glucerna shake for added nutrition.
--- NOTE | 2019-06-20 12:25 | NUR ---
CONTINUE TO FOLLOW, PT UP IN CHAIR. STATES FEELING IMPROVED, HOPES TO GET SANCHEZ OUT SOON. PT IS AGREEABLE TO [facility] HH IF DR FEELS NECCESSARY. WILL FOLLOW
--- NOTE | 2019-06-20 13:34 | NUR ---
assumed pt care report received from nurse pt is aox4. on 4 l nc. vss. tracing sr on quality assurance monitor. pt is up with stand by assist. out of bed to bedside commode as needed for bowel movement. pt had 2 episodeds of soft bowel movement this am. colace not given due to frequent soft stool. pt 1500 cc of fluid restriction. accucheck ac/hs. pt out of bed to chair with help. has good appetite. call light at reach. no complaint. will continue to monitor
[2019-06-20 14:51] LABS: HEMATOCRIT 35.9 % (42.0-52.0); MCH 29.2 pg (26.0-34.0); MCHC 33.5 g/dL (28.0-37.0); MCV 87.2 fL (80.0-100.0); MPV 8.8 fl. (7.2-11.1); NUCLEATED RBCS 0 /100WBC; PLATELET COUNT* 219 thou/uL (150-400); RBC 4.12 mil/uL (4.50-6.00); RDW-CV 16.4 % (10.5-14.5); WBC 7.7 thou/uL (4.0-11.0)
[2019-06-20 15:44] VITALS: BP 154/55
[2019-06-20 16:20] LABS: ABSOLUTE EOSINOPHILS 0.2 thou/uL (0.0-0.7); ABSOLUTE LYMPHOCYTES 0.3 thou/uL (0.8-5.3); ABSOLUTE MONOCYTES 0.2 thou/uL (0.0-1.2); PLATELET ESTIMATE ADEQUATE
--- NOTE | 2019-06-20 19:24 | NUR ---
SANCHEZ REMOVED. I&O CHARTED. SEE CHART. PT RECEIVED SHOWER WORKED WITH PHYSICAL THERAPY DURING THE DAY.
[2019-06-20 20:00] VITALS: BP 160/56
[2019-06-21] VITALS: BP 115/61
[2019-06-21 04:00] VITALS: BP 169/61
[2019-06-21 07:32] LABS: HEMATOCRIT 33.4 % (42.0-52.0); HEMOGLOBIN 11.1 gm/dL (14.0-18.0); MCHC 33.3 g/dL (28.0-37.0); MCV 87.1 fL (80.0-100.0); MPV 8.3 fl. (7.2-11.1); RBC 3.83 mil/uL (4.50-6.00); RDW-CV 16.2 % (10.5-14.5); WBC 7.5 thou/uL (4.0-11.0)
[2019-06-21 07:40] LABS: ALBUMIN 2.5 g/dL (3.4-5.0); CALCIUM 8.1 mg/dL (8.5-10.1); MAGNESIUM 1.6 mg/dL (1.8-2.4); POTASSIUM 3.6 mmol/L (3.5-5.1); TOTAL BILIRUBIN 0.6 mg/dL (<0.1-1.0); TOTAL PROTEIN 6.1 g/dL (6.4-8.2)
[2019-06-21 08:00] VITALS: BP 164/57
[2019-06-21 11:48] VITALS: BP 159/58
[2019-06-21 16:00] VITALS: BP 153/56
--- NOTE | 2019-06-21 18:19 | NUR ---
assumed pt care report received from nurse. pt is oax4 on 4 l nc. sr on quality assurance monitor chassis, vss. accucheck. uses urinal. up to chair with nurse assistance at lunch time. lidocaine applied on left foot. no complaint. call light at reach. will continue to monitor pt
[2019-06-21 19:45] VITALS: BP 160/63
[2019-06-21 21:19] LABS: BE 4.4 mmol/L (-2 to +3); PCO2 35.8 mmHg (35.0-45.0); PO2 90.2 mmHg (75.0-100.0); pH 7.503 (7.340-7.450)
[2019-06-22] VITALS (7 sets, daily range): BP systolic 115–170; BP diastolic 49–62
--- NOTE | 2019-06-22 05:31 | NUR ---
PT SLEPT MOST OF SHIFT. ASSESSMENT DOCUMENTED. MEDS GIVEN PER E-JUL. IV PATENT, ABX INFUSED. NO REPORTS OF PAIN THIS SHIFT. FALL PRECAUTIONS IN PLACE. WILL CONTINUE WITH PLAN OF CARE.
--- NOTE | 2019-06-22 15:17 | NUR ---
ORDERS FOR DC WITH HH RECEIVED, PT DID NOT QUALIFY FOR HH. DISCUSSED OPTIONS AND CHOSE [facility]. CALLED AND FAXED ORDERS TO [facility]. PT TO RETURN HOME WITH
[2019-06-22] MEDS ORDERED: FUROSEMIDE 40 M40 M1 PO (15:44)
[2019-06-22] MEDS ORDERED: NEURONTIN 300M300 M2 PO (15:47)
[2019-06-22] MEDS ORDERED: MAGNESIUM400 M1 PO (16:00)
[2019-06-22] MEDS ORDERED: CIPRO500 M1 PO (16:19)
--- NOTE | 2019-06-22 17:08 | NUR ---
I have reviewed the documentation by TMAI MCKENZIE from 06/22/19 to 06/22/19 and I concur with it. LUIS ACMP
== END 2019-06-22 17:55 | disposition home health service (06) | DRG 871 ==
LOC: M.ERS 13:37 → M.TBA-ER 15:47 → M.2W 15:47
PROVIDERS: Family Medicine; Internal Medicine; Internal Medicine Infectious Disease; Internal Medicine Nephrology; ADMIT Family Medicine
PROC: 5A09357 Assistance with Respiratory Ventilation, Less than 24 Consecutive Hours, Continuous Positive Airway Pressure (ICD-10-PCS; principal; 2019-06-16)
DX: A41.9 Sepsis, unspecified organism (principal); E43 Unspecified severe protein-calorie malnutrition; N18.6 End stage renal disease; J96.01 Acute respiratory failure with hypoxia; J18.9 Pneumonia, unspecified organism; T86.19 Other complication of kidney transplant; N17.9 Acute kidney failure, unspecified; N12 Tubulo-interstitial nephritis, not specified as acute or chronic; N13.8 Other obstructive and reflux uropathy; Z94.0 Kidney transplant status; R65.20 Severe sepsis without septic shock; G47.33 Obstructive sleep apnea (adult) (pediatric); E66.9 Obesity, unspecified; E11.22 Type 2 diabetes mellitus with diabetic chronic kidney disease; I12.9 Hypertensive chronic kidney disease with stage 1 through stage 4 chronic kidney disease, or unspecified chronic kidney disease; N13.9 Obstructive and reflux uropathy, unspecified; N40.0 Benign prostatic hyperplasia without lower urinary tract symptoms; E78.5 Hyperlipidemia, unspecified; K21.9 Gastro-esophageal reflux disease without esophagitis; K59.00 Constipation, unspecified; N40.1 Benign prostatic hyperplasia with lower urinary tract symptoms; Z99.81 Dependence on supplemental oxygen; Z90.49 Acquired absence of other specified parts of digestive tract; Z89.422 Acquired absence of other left toe(s); Z79.82 Long term (current) use of aspirin; Z79.4 Long term (current) use of insulin; Z79.899 Other long term (current) drug therapy; Z88.8 Allergy status to other drugs, medicaments and biological substances; Z68.31 Body mass index [BMI] 31.0-31.9, adult

== ENCOUNTER 2019-10-23 18:08 | Emergency (ER) | payer MEDICARE, OTHER ==
[~2019-10-23] VITALS: Ht 172.7 cm; Wt 81.7 kg
[~2019-10-23 18:08] MED LIST changes: +CENTRUM SILVER1 EAC7 PO; +CIPRO500 M1 PO; +EXCEDRIN MIGRA1 EAC1 PO; +FUROSEMIDE 40 M40 M1 PO; +HUMULIN N100 UNIT/1 SUBQ; +LATANOPROST 0.2.5 ML OPHTHALMIC; +MAGNESIUM400 M1 PO; +MIRALAX119 GM PO; +MYSOLINE50 MG PO; +NEURONTIN 300M300 M2 PO; +NITROSTAT0.4 M1 SUBLING; +PROSCAR 5MG TABL5 M1 PO; +SENOKOT-S1 TA2 PO; +SILDENAFIL20 MG PO
[2019-10-23] MEDS ORDERED: NOVOLIN N100 UNIT/3 SUBQ (18:32)
[2019-10-23] MEDS ORDERED: COZAAR 25 MG TA25 M2 PO (18:32)
[2019-10-23 19:33] LABS: HEMATOCRIT 40.8 % (42.0-52.0); HEMOGLOBIN 13.7 gm/dL (14.0-18.0); MCH 29.8 pg (26.0-34.0); MCHC 33.6 g/dL (28.0-37.0); MCV 88.6 fL (80.0-100.0); MPV 8.4 fl. (7.2-11.1); NUCLEATED RBCS 0 /100WBC; PLATELET COUNT* 151 thou/uL (150-400); RDW-CV 15.6 % (10.5-14.5); WBC 16.5 thou/uL (4.0-11.0)
[2019-10-23 19:44] LABS: CALCIUM 8.7 mg/dL (8.5-10.1); CREATININE 1.4 mg/dL (0.6-1.3); POTASSIUM 3.7 mmol/L (3.5-5.1)
[2019-10-23 19:48] LABS: ALBUMIN 3.7 g/dL (3.4-5.0); MAGNESIUM 1.7 mg/dL (1.8-2.4); TOTAL BILIRUBIN 0.8 mg/dL (<0.1-1.0)
[2019-10-23 19:56] LABS: ABSOLUTE LYMPHOCYTES 0.3 thou/uL (0.8-5.3); ABSOLUTE NEUTROPHILS 15.2 thou/uL (1.6-8.1); ANISOCYTOSIS Occasional; PLATELET ESTIMATE ADEQUATE
[2019-10-23 22:11] LABS: URINE BILIRUBIN NEGATIVE (Negative); URINE BLOOD NEGATIVE (Negative); URINE CLARITY CLEAR; URINE COLOR YELLOW; URINE GLUCOSE-RANDOM NEGATIVE (Negative); URINE KETONES NEGATIVE (Negative); URINE LEUKOCYTES-REFLEX NEGATIVE (Negative); URINE NITRITE-REFLEX NEGATIVE (Negative); URINE PROTEIN NEGATIVE (Negative); URINE UROBILINOGEN 0.2 E.U./dl (0.2-1.0)
[2019-10-23] MEDS ORDERED: DOXYCYCLINE 10100 MG PO (22:56)
[2019-10-24 00:27] VITALS: BP 140/55
--- NOTE | 2019-10-24 15:26 | EKG ---
[place] [address] ELECTROCARDIOGRAM REPORT Name: DAKOTA REYNOLDS 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: [facility] : 1945 Requested By: Joy May Order Number: [id number] MD: Harshil De Luna Measurements Intervals [place] Rate: 80 P: 27 AR: 233 QRS: -14 QRSD: 89 T: 37 QT: 355 QTc: 410 Interpretive Statements Sinus rhythm Prolonged AR interval Inferior infarct, old, possible compared to ECG 06/15/2019 20:39:06 Myocardial infarct finding now present Electronically Signed On 10-24-2019 15:25:49 CDT by Harshil De Luna [email or web address] <ELECTRONICALLY SIGNED> By: Harshil De Luna MD, [facility] 10/24/19 1525 30 30 Harshil De Luna MD, [facility] /EPI
== END 2019-10-24 00:35 | disposition home or self-care (01) ==
LOC: M.ERS 18:08
PROVIDERS: Emergency Medicine
DX: S80.11XA Contusion of right lower leg, initial encounter (principal); S40.812A Abrasion of left upper arm, initial encounter; R42 Dizziness and giddiness; R50.9 Fever, unspecified; E11.9 Type 2 diabetes mellitus without complications; G47.30 Sleep apnea, unspecified; Z79.899 Other long term (current) drug therapy; Z79.82 Long term (current) use of aspirin; Z79.4 Long term (current) use of insulin; Z88.8 Allergy status to other drugs, medicaments and biological substances; Z91.09 Other allergy status, other than to drugs and biological substances; W19.XXXA Unspecified fall, initial encounter; Y93.89 Activity, other specified; Y92.89 Other specified places as the place of occurrence of the external cause; Y99.8 Other external cause status

== ENCOUNTER 2020-08-27 22:22 | Emergency (ER) | payer MEDICARE ==
[~2020-08-27] VITALS: Ht 172.7 cm; Wt 87.5 kg
[~2020-08-27 22:22] MED LIST changes: +COZAAR 25 MG TA25 M2 PO; +DOXYCYCLINE 10100 MG PO; +NOVOLIN N100 UNIT/3 SUBQ
[2020-08-27] MEDS ORDERED: CARVEDILOL25 MG PO (22:46)
[2020-08-27 22:48] LABS: ABSOLUTE EOSINOPHILS 0.1 thou/uL (0.0-0.7); ABSOLUTE LYMPHOCYTES 0.7 thou/uL (0.8-5.3); ABSOLUTE MONOCYTES 0.7 thou/uL (0.0-1.2); ABSOLUTE NEUTROPHILS 2.9 thou/uL (1.6-8.1); BASOPHILS 0.6 %; EOSINOPHILS 2.1 %; HEMATOCRIT 37.1 % (42.0-52.0); HEMOGLOBIN 12.4 gm/dL (14.0-18.0); LYMPHOCYTES 16.7 %; MCH 30.1 pg (26.0-34.0); MCHC 33.3 g/dL (28.0-37.0); MCV 90.4 fL (80.0-100.0); MONOCYTES 15.4 %; MPV 7.7 fl. (7.2-11.1); NUCLEATED RBCS 0 /100WBC; PLATELET COUNT* 136 thou/uL (150-400); POLYS 65.2 %; RDW-CV 15.8 % (10.5-14.5); WBC 4.4 thou/uL (4.0-11.0)
[2020-08-27] MEDS ORDERED: ASA81BEC PO (22:48)
[2020-08-27 22:55] LABS: CREATININE 1.2 mg/dL (0.6-1.3); POTASSIUM 3.4 mmol/L (3.5-5.1)
[2020-08-27 22:57] LABS: INR 1.1; PROTIME 11.9 Seconds (9.20-11.50)
[2020-08-27 23:06] LABS: ALBUMIN 3.6 g/dL (3.4-5.0); MAGNESIUM 1.7 mg/dL (1.8-2.4); TOTAL BILIRUBIN 0.8 mg/dL (<0.1-1.0); TOTAL PROTEIN 6.2 g/dL (6.4-8.2)
[2020-08-27 23:13] LABS: URINE BILIRUBIN NEGATIVE (Negative); URINE BLOOD NEGATIVE (Negative); URINE CLARITY CLEAR; URINE COLOR YELLOW; URINE GLUCOSE-RANDOM NEGATIVE (Negative); URINE KETONES NEGATIVE (Negative); URINE LEUKOCYTES-REFLEX NEGATIVE (Negative); URINE NITRITE-REFLEX NEGATIVE (Negative); URINE PROTEIN 2+ (Negative); URINE SPECIFIC GRAVITY 1.015 (1.005-1.030); URINE UROBILINOGEN 0.2 E.U./dl (0.2-1.0)
[2020-08-27 23:21] LABS: BACTERIA-REFLEX None Seen /HPF (None Seen); CRYSTALS None Seen /LPF (None Seen); HYALINE CASTS 4-10 Moderate /LPF (None Seen); SQUAMOUS NONE SEEN /LPF (0-3); URINE RBC None Seen /HPF (0-2); URINE WBC-REFLEX 0-5 Rare /HPF (0-5)
[2020-08-28 01:13] VITALS: BP 144/61
--- NOTE | 2020-08-28 15:49 | EKG ---
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: [facility] : 1945 Requested By: Joy May Order Number: [id number] MD: Cheikh Loera Measurements Intervals [place] Rate: 68 P: 4 WI: 272 QRS: 1 QRSD: 97 T: 33 QT: 415 QTc: 442 Interpretive Statements Sinus rhythm Ventricular trigeminy Prolonged WI interval Low voltage, precordial leads Compared to ECG 10/23/2019 19:31:21 Ventricular premature complex(es) now present Low QRS voltage now present Electronically Signed On 08-28-2020 15:49:23 CDT by Cheikh Loera [email or web address] <ELECTRONICALLY SIGNED> By: Cheikh Loera MD, [facility] 08/28/20 1549 23 Cheikh Loera MD, [facility] /EPI
== END 2020-08-28 01:13 | disposition home or self-care (01) ==
LOC: M.ERS 22:22
PROVIDERS: Emergency Medicine
DX: E11.649 Type 2 diabetes mellitus with hypoglycemia without coma (principal); Z94.0 Kidney transplant status; Z90.49 Acquired absence of other specified parts of digestive tract; Z98.890 Other specified postprocedural states; Z89.422 Acquired absence of other left toe(s); Z79.899 Other long term (current) drug therapy; Z79.82 Long term (current) use of aspirin; Z79.4 Long term (current) use of insulin; Z88.8 Allergy status to other drugs, medicaments and biological substances; Z91.048 Other nonmedicinal substance allergy status

== ENCOUNTER 2021-07-03 12:48 | Emergency (ER) | payer MEDICARE ==
[~2021-07-03] VITALS: Ht 172.7 cm; Wt 91.2 kg
[~2021-07-03 12:48] MED LIST changes: +ASA81BEC PO; +CARVEDILOL25 MG PO
[2021-07-03 13:43] LABS: ABSOLUTE EOSINOPHILS 0.1 thou/uL (0.0-0.7); ABSOLUTE MONOCYTES 0.4 thou/uL (0.0-1.2); ABSOLUTE NEUTROPHILS 2.5 thou/uL (1.6-8.1); BASOPHILS 0.7 %; EOSINOPHILS 2.7 %; HEMATOCRIT 40.2 % (42.0-52.0); HEMOGLOBIN 13.7 gm/dL (14.0-18.0); LYMPHOCYTES 24.2 %; MCH 31.3 pg (26.0-34.0); MCHC 34.1 g/dL (28.0-37.0); MCV 91.8 fL (80.0-100.0); MPV 7.5 fl. (7.2-11.1); NUCLEATED RBCS 0 /100WBC; PLATELET COUNT* 137 thou/uL (150-400); POLYS 62.4 %; RBC 4.38 mil/uL (4.50-6.00); RDW-CV 13.6 % (10.5-14.5); WBC 3.9 thou/uL (4.0-11.0)
[2021-07-03 13:52] LABS: CALCIUM 8.6 mg/dL (8.5-10.1); CREATININE 1.3 mg/dL (0.6-1.3); POTASSIUM 3.3 mmol/L (3.5-5.1)
[2021-07-03 14:02] LABS: TOTAL BILIRUBIN 0.8 mg/dL (<0.1-1.0); TOTAL PROTEIN 5.6 g/dL (6.4-8.2)
[2021-07-03 15:24] LABS: URINE BILIRUBIN NEGATIVE (Negative); URINE BLOOD NEGATIVE (Negative); URINE CLARITY CLEAR; URINE COLOR YELLOW; URINE GLUCOSE-RANDOM NEGATIVE (Negative); URINE KETONES NEGATIVE (Negative); URINE LEUKOCYTES-REFLEX NEGATIVE (Negative); URINE NITRITE-REFLEX NEGATIVE (Negative); URINE PROTEIN 1+ (Negative); URINE SPECIFIC GRAVITY 1.015 (1.005-1.030); URINE UROBILINOGEN 0.2 E.U./dl (0.2-1.0)
[2021-07-03] MEDS ORDERED: APAP W/CODEINE1 TA2 PO (16:21)
[2021-07-03 16:30] VITALS: BP 151/52
--- NOTE | 2021-07-04 10:56 | EKG ---
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: : 1945 Requested By: Elzbieta Yeung Order Number: [id number] MD: Cheikh Loera Measurements Intervals [place] Rate: 75 P: 262 ID: [id number] QRS: -13 QRSD: 87 T: 61 QT: 384 QTc: 429 Interpretive Statements Sinus or ectopic atrial rhythm Prolonged ID interval Consider left atrial enlargement Inferior infarct, old artifact Compared to ECG 08/27/2020 22:24:48 Ectopic atrial rhythm now present Ventricular premature complex(es) no longer present Electronically Signed On 07-04-2021 10:56:02 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
== END 2021-07-03 16:30 | disposition home or self-care (01) ==
LOC: M.ERS 12:48
PROVIDERS: Physician Assistant
DX: R60.0 Localized edema (principal); E11.9 Type 2 diabetes mellitus without complications; Z90.49 Acquired absence of other specified parts of digestive tract; Z79.899 Other long term (current) drug therapy; Z88.8 Allergy status to other drugs, medicaments and biological substances